=== PATIENT | male | born 1990 | race Caucasian/White ===

== ENCOUNTER → 2017-06-22 | Outpatient (CLI) | payer OTHER ==
--- NOTE | 2017-06-22 16:07 | DIAGNOSTIC IMAGING REPORT ---
SINUSES WITH BRAIN LAB CLINICAL HISTORY: 26 years-old Male presenting with CHRONIC SINUSITIS. TECHNIQUE: Multidetector CT of the sinuses was performed without the use of intravenous contrast. IV contrast: None. A dose lowering technique was used consistent with the principles of ALARA (as low as reasonably achievable). COMPARISON: None. CT DOSE (mGy.cm): The estimated cumulative dose is 293.27 mGycm. FINDINGS: Clinic Nurse topogram: Unremarkable. Minimal mucosal thickening in the left maxillary sinus. Remainder of paranasal sinuses clear. Mastoid air cells and middle ears clear. No sclerosis or erosion of the sinus peres. Bony nasal septum mildly deviated to the left with bony spurring. Ostiomeatal units and nasofrontal ethmoid recesses patent. No bony dehiscence of the carotid siphons or optic canals. 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 Limited intracranial evaluation within normal limits. Orbits normal. Superficial soft tissues of the face within normal limits. Upper cervical spine normal. IMPRESSION: 1. No current evidence of acute or chronic sinusitis. 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 Electronically signed by: Mark Patel M.D. 06/22/2017 4:06 PM Dictated Date/Time: 06/22/2017 4:03 PM
== END | disposition home or self-care (01) ==
LOC: C.CTS 15:41
PROVIDERS: ATTEND Otolaryngology
DX: J32.9 Chronic sinusitis, unspecified (principal)